=== PATIENT | female | born 1995 | race Caucasian/White ===

== ENCOUNTER 2020-11-27 17:24 | Emergency (ER) | payer OTHER ==
[2020-11-27 17:41] VITALS: BP 141/78; PULSE 115; TEMP 98.4; BMI 31.2
[2020-11-27] MEDS ORDERED: predniSONE 20 MG TABLET (UD) PO ONE (18:29)
[2020-11-27] MEDS ORDERED: diphenhydrAMINE HCL 25 MG CAPSULE (FP) PO ONE ×2 (18:30→18:33)
[2020-11-27] MEDS ORDERED: predniSONE 20 MG TABLET (UD) ONE (18:33)
== END 2020-11-27 18:53 | disposition home or self-care (01) ==
LOC: JERFT 17:24
DX: T78.40XA Allergy, unspecified, initial encounter (principal)
CPT/HCPCS: 93005; 93010; 99284-25

== ENCOUNTER 2021-01-30 05:21 | Emergency (ER) | payer OTHER ==
[2021-01-30 05:32] VITALS: BP 106/59; PULSE 99; TEMP 98.1; BMI 31.2
[2021-01-30 06:44] LABS: BASO % 0.4 % (0-2.0); EOS % 2.2 % (0-4.5); HEMATOCRIT 37.9 % (32.4-45.2); HEMOGLOBIN 12.8 GM/dL (10.7-15.3); LYMPH % 26.5 % (8-40); MCHC 33.7 g/dl (32.0-36.0); MEAN PLT VOLUME 7.5 fl (7.5-11.1); NEUT % 62.9 % (42.8-82.8); PLATELET COUNT 335 K/MM3 (134-434); RBC 4.74 M/mm3 (3.60-5.2); WHITE BLOOD COUNT 9.4 K/mm3 (4.0-10.0)
[2021-01-30 07:03] LABS: CHLORIDE 107 mmol/L (98-107); SODIUM 138 mmol/L (136-145)
[2021-01-30 07:05] LABS: CALCIUM 9.3 mg/dL (8.5-10.1)
[2021-01-30 07:07] LABS: ALBUMIN 3.2 g/dl (3.4-5.0); ANION GAP 7 MMOL/L (8-16); BLOOD UREA NITROGEN 10.8 mg/dL (7-18); CO2 24 mmol/L (21-32); GLUCOSE,RANDOM 106 mg/dL (74-106)
[2021-01-30 07:09] LABS: CREATININE 0.8 mg/dL (0.55-1.3); SGOT/AST 19 U/L (15-37); SGPT/ALT 17 U/L (13-61)
[2021-01-30 07:11] LABS: BILIRUBIN,TOTAL 0.3 mg/dL (0.2-1); TOT PROT 7.2 g/dl (6.4-8.2)
[2021-01-30 07:12] LABS: ALK PHOS 75 U/L (45-117)
== END 2021-01-30 08:30 | disposition home or self-care (01) ==
LOC: JER 05:21
DX: R07.9 Chest pain, unspecified (principal)
CPT/HCPCS: 36415; 71046-TC-FY; 80053; 82550; 84484; 84703; 85025; 93005; 93010; 99285-25

== ENCOUNTER 2021-02-04 04:49 | Emergency (ER) | payer OTHER ==
[2021-02-04 04:54] VITALS: BMI 31.2
[2021-02-04 06:45] LABS: BASO % 0.3 % (0-2.0); EOS % 1.3 % (0-4.5); HEMATOCRIT 37.2 % (32.4-45.2); HEMOGLOBIN 12.6 GM/dL (10.7-15.3); LYMPH % 25.7 % (8-40); MCH 26.8 pg (25.7-33.7); MCHC 33.7 g/dl (32.0-36.0); MEAN CELL VOLUME 79.5 fl (80-96); MEAN PLT VOLUME 7.7 fl (7.5-11.1); MONO % 7.2 % (3.8-10.2); NEUT % 65.5 % (42.8-82.8); PLATELET COUNT 354 K/MM3 (134-434); RBC 4.69 M/mm3 (3.60-5.2); RDW 13.7 % (11.6-15.6); WHITE BLOOD COUNT 12.2 K/mm3 (4.0-10.0)
[2021-02-04 07:03] LABS: CHLORIDE 107 mmol/L (98-107); SODIUM 138 mmol/L (136-145)
[2021-02-04 07:05] LABS: ALBUMIN 3.2 g/dl (3.4-5.0); CALCIUM 9.4 mg/dL (8.5-10.1)
[2021-02-04 07:06] LABS: ANION GAP 6 MMOL/L (8-16); BLOOD UREA NITROGEN 10.9 mg/dL (7-18); CO2 25 mmol/L (21-32); GLUCOSE,RANDOM 96 mg/dL (74-106)
[2021-02-04 07:09] LABS: CREATININE 0.7 mg/dL (0.55-1.3); SGOT/AST 13 U/L (15-37); SGPT/ALT 17 U/L (13-61)
[2021-02-04 07:10] LABS: BILIRUBIN,TOTAL 0.3 mg/dL (0.2-1)
[2021-02-04 07:12] LABS: ALK PHOS 70 U/L (45-117)
[2021-02-04 08:01] VITALS: PULSE 100
[2021-02-04 08:18] VITALS: BP 116/72; TEMP 98
== END 2021-02-04 08:10 | disposition home or self-care (01) ==
LOC: JER 04:49
DX: R00.2 Palpitations (principal)
CPT/HCPCS: 36415; 71046-TC-FY; 80053; 82962; 83735; 84443; 84484; 84703; 85025; 93005; 93010; 93308; 99284-25; C9803; U0003; U0005

== ENCOUNTER 2022-01-08 08:30 | Inpatient (IN) | payer OTHER ==
[2022-01-08] MEDS: ELECTROLYTE-148 SOLN 1,000 ML IV SCH ×3 (09:00→16:54)
[2022-01-08 09:56] VITALS: BMI 34.0
[2022-01-08 10:56] LABS: BASO % 0.3 % (0-2.0); EOS % 0.5 % (0-4.5); HEMOGLOBIN 11.9 GM/dL (10.7-15.3); LYMPH % 15.7 % (8-40); MCH 26.4 pg (25.7-33.7); MCHC 32.2 g/dl (32.0-36.0); MEAN CELL VOLUME 82.1 fl (80-96); MONO % 6.5 % (3.8-10.2); PLATELET COUNT 210 10^3/uL (134-434); RBC 4.51 M/mm3 (3.60-5.2); RDW 16.5 % (11.6-15.6); WHITE BLOOD COUNT 11.1 K/mm3 (4.0-10.0)
[2022-01-08 11:00] LABS: INR 0.88 (0.83-1.09); PROTHROMBIN TIME (PATIENT) 10.1 SEC (9.7-13.0)
[2022-01-08 11:03] LABS: ACTIVATED PTT 27.7 SECONDS (25.2-36.5)
[2022-01-08 11:11] LABS: CALCIUM 8.9 mg/dL (8.5-10.1)
[2022-01-08] MEDS ORDERED: BUPIVACAINE HCL/PF 0.25% (2.5MG/ML) 10 ML VIAL ONE (11:11)
[2022-01-08 11:15] LABS: CREATININE 0.6 mg/dL (0.55-1.3)
[2022-01-08] MEDS ORDERED: NALOXONE HCL 0.4 MG/ML VIAL IVPUSH PRN (11:35)
[2022-01-08] MEDS ORDERED: FENTANYL/BUPIVACAINE/NS/PF - PCEA - 50 ML DISP.SYRIN EP ONE ×3 (11:43→21:22)
[2022-01-08] MEDS: FENTANYL/BUPIVACAINE/NS/PF - PCEA - 50 ML DISP.SYRIN EP SCH ×2 (12:00→16:50)
[2022-01-08] MEDS ORDERED: OXYTOCIN 30 UNITS in 0.9% NS 30 UNIT/500 ML INFUS.BAG IVPB SCH (16:30)
[2022-01-08] MEDS ORDERED: OXYTOCIN 30 UNITS in 0.9% NS 30 UNIT/500 ML INFUS.BAG IVPB ONE (16:44)
[2022-01-08] MEDS ORDERED: OXYTOCIN 20 UNITS in 0.9% NS 20 UNIT/1,000 ML INFUS.BAG IV ONE (23:19)
[2022-01-09] MEDS ORDERED: METHYLERGONOVINE MALEATE 0.2 MG/1 ML AMP IM PRN (01:52)
[2022-01-09] MEDS ORDERED: BENZOCAINE 28 GM HEMORRHOIDAL OINTMENT TP PRN (01:52)
[2022-01-09] MEDS ORDERED: BISACODYL 10 MG SUPP.RECT RC PRN (01:52)
[2022-01-09] MEDS ORDERED: oxyCODONE HCL 5 MG TABLET PO PRN (01:52)
[2022-01-09] MEDS ORDERED: ACETAMINOPHEN 325 MG TABLET (FP) PO PRN (01:52)
[2022-01-09] MEDS ORDERED: BENZOCAINE 20% 57 GM BOTTLE TP PRN (01:52)
[2022-01-09] MEDS ORDERED: WITCH HAZEL 50% (TUCKS) 40 PAD/JAR PAD TP PRN (01:52)
[2022-01-09] MEDS ORDERED: OXYTOCIN 20 UNITS in 0.9% NS 20 UNIT/1,000 ML INFUS.BAG IV SCH (02:00)
[2022-01-09] MEDS ORDERED: ACETAMINOPHEN 325 MG TABLET (FP) ONE (02:15)
[2022-01-09 02:51] LABS: CORD BASE EXCESS -5.8 mmol/L (0-2); CORD HCO3 22.6 mmHg (20-29); CORD pH 7.231 (7.14-7.44)
[2022-01-09] MEDS: IBUPROFEN 600 MG TABLET (FP) PO PRN ×3 (10:35→23:01)
[2022-01-10 09:10] LABS: BASO % 0.4 % (0-2.0); EOS % 2.2 % (0-4.5); HEMATOCRIT 31.7 % (32.4-45.2); HEMOGLOBIN 10.7 GM/dL (10.7-15.3); MCH 27.5 pg (25.7-33.7); MCHC 33.8 g/dl (32.0-36.0); MEAN CELL VOLUME 81.3 fl (80-96); MEAN PLT VOLUME 8.6 fl (7.5-11.1); MONO % 6.4 % (3.8-10.2); PLATELET COUNT 204 10^3/uL (134-434); WHITE BLOOD COUNT 16.1 K/mm3 (4.0-10.0)
[2022-01-10] MEDS: IBUPROFEN 600 MG TABLET (FP) PO PRN ×2 (14:21→23:26)
[2022-01-10] MEDS ORDERED: SENNOSIDES/DOCUSATE COMBO (SENNA PLUS) TABLET (UD) PO PRN (22:00)
[2022-01-11 08:49] VITALS: BP 104/71; PULSE 83; TEMP 98.3
== END 2022-01-11 12:50 | disposition home or self-care (01) | DRG 807 ==
LOC: JLDR 08:30 → J3W 01-09 03:47
PROVIDERS: ADMIT Obstetrics & Gynecology; ATTEND Obstetrics & Gynecology
PROC: 10E0XZZ Delivery of Products of Conception, External Approach (ICD-10-PCS; principal; 2022-01-09)
PROC: 0KQM0ZZ Repair Perineum Muscle, Open Approach (ICD-10-PCS; 2022-01-09)
PROC: 0W8NXZZ Division of Female Perineum, External Approach (ICD-10-PCS; 2022-01-09)
DX: O70.1 Second degree perineal laceration during delivery (principal); Z37.0 Single live birth; O99.213 Obesity complicating pregnancy, third trimester; Z3A.39 39 weeks gestation of pregnancy
CPT/HCPCS: 36415; 36600; 59409; 80048; 82803; 85025; 85610; 85730; 86780; 86850; 86900; 86901; C9803-CS; U0003; U0005

== ENCOUNTER 2023-10-07 01:34 | Emergency (ER) | payer OTHER ==
[2023-10-07 01:45] VITALS: BP 113/78; PULSE 90; RESP 20; TEMP 97.8; BMI 35.2
[2023-10-07] MEDS ORDERED: ONDANSETRON 4 MG/2 ML VIAL IVPUSH ONE (03:41)
[2023-10-07] MEDS ORDERED: ONDANSETRON 4 MG/2 ML VIAL ONE (04:06)
[2023-10-07 04:48] LABS: BASO % 0.3 % (0-2.0); EOS % 1.1 % (0-4.5); HEMATOCRIT 39.5 % (32.4-45.2); HEMOGLOBIN 12.8 GM/dL (10.7-15.3); LYMPH % 23.5 % (8-40); MCH 26.1 pg (25.7-33.7); MCHC 32.3 g/dl (32.0-36.0); MEAN CELL VOLUME 80.9 fl (80-96); MEAN PLT VOLUME 7.8 fl (7.5-11.1); MONO % 7.5 % (3.8-10.2); NEUT % 67.6 % (42.8-82.8); PLATELET COUNT 302 10^3/uL (134-434); RBC 4.89 M/mm3 (3.60-5.2); RDW 14.5 % (11.6-15.6); WHITE BLOOD COUNT 10.8 K/mm3 (4.0-10.0)
[2023-10-07 05:09] LABS: POTASSIUM 4.5 mmol/L (3.5-5.1)
[2023-10-07 05:11] LABS: CALCIUM 8.7 mg/dL (8.5-10.1)
[2023-10-07 05:12] LABS: ALBUMIN 3.4 g/dl (3.4-5.0); BLOOD UREA NITROGEN 15.9 mg/dL (7-18)
[2023-10-07 05:15] LABS: CREATININE 0.8 mg/dL (0.55-1.3)
[2023-10-07 05:17] LABS: TOT PROT 6.7 g/dl (6.4-8.2)
[2023-10-07 05:31] LABS: BILIRUBIN,TOTAL 0.2 mg/dL (0.2-1)
== END 2023-10-07 06:02 | disposition home or self-care (01) ==
LOC: JER 01:34
PROC: 3E033GC Introduction of Other Therapeutic Substance into Peripheral Vein, Percutaneous Approach (ICD-10-PCS; principal; 2023-10-07)
DX: R00.2 Palpitations (principal); R11.0 Nausea; R09.81 Nasal congestion; Z20.822 Contact with and (suspected) exposure to COVID-19
CPT/HCPCS: 0241U-QW; 36415; 71045-TC-FY; 80053; 84443; 84484; 84703; 85025; 93005; 93010; 99285-25